=== PATIENT | female | born 1995 | race Caucasian/White ===

== ENCOUNTER 2017-05-02 09:40 | Outpatient (CLI) | payer BC ==
--- NOTE | 2017-05-02 12:10 | ULT ---
OBSTETRIC SONOGRAM: History: evaluation. Second trimester . FINDINGS: Multiple transabdominal sonographic views of the gravid uterus show a single intrauterine gestation i n cephalic presentation. The cervix is closed and 3.0 cm in length. Grade 0 placenta is anterior. No gross intracranial abnormalities are apparent. Amniotic fluid is within normal limits. Four-chamber h eart shows motion at 158 beats/minute. spine and kidneys are intact as visualized. Three vessel cord shows a normal insertion. Measurements are as follows: BPD 19 weeks 1 day HC 19 weeks 1 day AC 18 weeks 2 days FL 18 weeks 3 days Estimated date of delivery based on today's sonogram is 09-28-17. Hadlock percentile equals 48%. IMPRESSION: Single viable intrauterine gestation with estimated gestational age based on today's sonogram is 18 w eeks 5 days. POS: [facility]
== END 2017-05-02 09:41 | disposition home or self-care (01) ==
LOC: ULT 09:40
PROVIDERS: ATTEND Family Medicine
DX: Z33.1 Pregnant state, incidental (principal); Z3A.18 18 weeks gestation of pregnancy
CPT/HCPCS: 76805

== ENCOUNTER 2017-10-03 14:22 | Inpatient (IN) | payer BC ==
[2017-10-03] MEDS ORDERED: Butorphanol Tartrate 1 MG/ML VIAL SLOW IVP PRN (15:01)
[2017-10-03] MEDS ORDERED: Ondansetron HCl/PF 4 MG/2 ML Vial IVP PRN (15:01)
[2017-10-03 15:56] LABS: Hemoglobin 11.4 g/dL (12.0-16.0); Mean Corpuscular HGB CONC 33.3 g/dL (32.0-36.0); Mean Corpuscular Hemoglobin 28.9 pg (27.0-31.0); Mean Corpuscular Volume 86.7 fL (78.0-98.0); Mean Platelet Volume 8.6 fL (7.4-10.4); Platelet Count 224 thou/uL (130-400); RBC Distribution Width 12.8 % (11.5-14.5); Red Blood Cell (RBC) Count 3.93 mill/uL (4.20-5.40); White Blood Cell (WBC) Count 10.7 thou/uL (4.8-10.8)
[2017-10-03 16:35] LABS: HBSAg Index 0.17 S/CO (0-0.99); HIV (1/2) Antibody/Antigen Non-Reactive (NonReactive); HIV 1/2 INDEX 0.14 S/CO (<1.00); Hep B Surf Ag Non-Reactive S/CO (NonReactive); Syphilis Antibody Nonreactive (Nonreactive); Syphilis Antibody Index 0.04 S/CO (<1.00 Non-Reactive)
[2017-10-03 17:49] VITALS: BMI 27.6
[2017-10-03] MEDS ORDERED: NS / Oxytocin 40 units/1000ml 1,000 ML ONE (22:59)
[2017-10-03] MEDS ORDERED: Lidocaine 1% (PF) 30 ML VIAL ONE (22:59)
[2017-10-04] MEDS ORDERED: Acetaminophen/Codeine 30-300mg Tablet PO PRN (12:35)
[2017-10-04] MEDS ORDERED: Preparation H Ointment 28 GM TUBE PR PRN (12:35)
[2017-10-04] MEDS ORDERED: HYDROcodone/Acetaminophen 5/325 mg Tablet PO PRN (12:35)
[2017-10-04] MEDS ORDERED: Lanolin Ointment 7 GM TUBE TOP PRN (12:35)
[2017-10-04] MEDS ORDERED: Milk Of Magnesia 30 ML UDCUP PO PRN (12:35)
[2017-10-04] MEDS ORDERED: Ondansetron HCl/PF 4 MG/2 ML Vial IVP PRN (12:35)
[2017-10-04] MEDS ORDERED: Benzocaine/Menthol 20-0.5% 60 ML CAN TOP PRN (12:35)
[2017-10-04] MEDS ORDERED: diphenhydrAMINE 25 MG CAP PO PRN (12:35)
[2017-10-04] MEDS ORDERED: Bisacodyl 10 MG SUPP PR PRN (12:35)
[2017-10-04] MEDS ORDERED: NS / Oxytocin 40 units/1000ml 1,000 ML IV SCH (12:35)
[2017-10-04] MEDS ORDERED: Prenatal Vitamin 1 TAB PO SCH (12:45)
[2017-10-04] MEDS ORDERED: Ferrous Sulfate 325 MG TAB PO SCH (12:45)
[2017-10-04] MEDS ORDERED: Docusate Calcium (SURFAK) 240 MG CAP PO SCH (12:45)
[2017-10-04] MEDS: Ibuprofen 800 MG TAB PO SCH ×2 (13:20→21:17)
[2017-10-04] MEDS: Ferrous Sulfate 325 MG TAB PO SCH (14:17)
[2017-10-04] MEDS: Docusate Calcium (SURFAK) 240 MG CAP PO SCH (21:17)
[2017-10-05] MEDS: Ibuprofen 800 MG TAB PO SCH ×2 (06:55→15:04)
[2017-10-05 07:55] VITALS: TEMP 98.6
[2017-10-05] MEDS ORDERED: Prenatal Vitamin 1 TAB PO SCH (09:00)
[2017-10-05] MEDS: Ferrous Sulfate 325 MG TAB PO SCH (09:44)
[2017-10-05] MEDS: Docusate Calcium (SURFAK) 240 MG CAP PO SCH (09:44)
[2017-10-05 12:06] VITALS: BP 117/68
== END 2017-10-05 16:15 | disposition home or self-care (01) | DRG 774 ==
LOC: L&D/OP 14:22 → L&D-LIB 15:36 → 3SW 10-04 12:48
PROVIDERS: ADMIT Family Medicine; ATTEND Family Medicine
PROC: 10E0XZZ Delivery of Products of Conception, External Approach (ICD-10-PCS; principal; 2017-10-03)
PROC: 0KQM0ZZ Repair Perineum Muscle, Open Approach (ICD-10-PCS; 2017-10-03)
DX: O70.1 Second degree perineal laceration during delivery (principal); O99.42 Diseases of the circulatory system complicating childbirth; Z37.0 Single live birth; Z3A.40 40 weeks gestation of pregnancy; O48.0 Post-term pregnancy; I48.91 Unspecified atrial fibrillation
CPT/HCPCS: 36415; 85027; 86780; 86850; 86900; 86901; 87340; 87389; J2001